=== PATIENT | female | born 1985 | race Caucasian/White ===

== ENCOUNTER 2020-08-02 12:43 | Emergency (ER) | payer OTHER ==
[~2020-08-02] VITALS: Ht 162.6 cm; Wt 113.4 kg
[2020-08-02] MEDS ORDERED: ALBUTEROL1.25 MG/3 NEB (13:43)
[2020-08-02] MEDS ORDERED: IPRAT-ALBUT 0.5-3 ML NEB (13:57)
== END 2020-08-02 13:57 | disposition home or self-care (01) ==
LOC: ER 12:43
DX: J45.901 Unspecified asthma with (acute) exacerbation (principal); Z88.0 Allergy status to penicillin; Z88.6 Allergy status to analgesic agent
CPT/HCPCS: 94640; 99284-25; A9270; J7512